=== PATIENT | female | born 1975 | race Caucasian/White ===

== ENCOUNTER 2018-03-10 04:36 | Observation (INO) | payer OTHER, SELFPAY ==
[2018-03-10 06:23] VITALS: BMI 21.2
[2018-03-10] MEDS ORDERED: Aspirin 325 MG TAB PO SCH (09:00)
[2018-03-10] MEDS ORDERED: ISOVUE-370 76%-LOCM 1 ML ONE (12:27)
[2018-03-10] MEDS ORDERED: Ondansetron HCl/PF 4 MG/2 ML Vial IVP PRN (13:07)
[2018-03-10] MEDS ORDERED: Acetaminophen 325 MG TAB PO PRN (13:07)
[2018-03-10] MEDS ORDERED: Acetaminophen 500 MG TAB PO PRN (13:40)
[2018-03-10] MEDS ORDERED: hydrOXYzine 25 MG TAB PO PRN (13:41)
[2018-03-10 13:47] LABS: #Eosinphils 0.2 thou/uL (0.0-0.7); #Lymphocytes 1.7 thou/uL (1.20-3.40); #Monocytes 0.4 thou/uL (0.11-0.59); #Neutrophils 4.5 thou/uL (1.40-6.50); %Basophils 0.7 % (0.0-1.0); %Eosinophils 2.5 % (0.0-10.0); %Lymphocytes 24.6 % (21.0-51.0); %Monocytes 5.6 % (0.0-10.0); %Neutrophils 66.6 % (42.0-75.0); Hemoglobin 12.2 g/dL (12.0-16.0); Mean Corpuscular HGB CONC 33.5 g/dL (32.0-36.0); Mean Corpuscular Hemoglobin 31.1 pg (27.0-31.0); Mean Corpuscular Volume 92.7 fl (81.0-99.0); Mean Platelet Volume 5.9 fL (7.4-10.4); Platelet Count 347 thou/uL (130-400); Red Blood Cell (RBC) Count 3.92 mill/uL (4.20-5.40); White Blood Cell (WBC) Count 6.8 thou/uL (4.8-10.8)
--- NOTE | 2018-03-10 14:04 | PDOC.EVN ---
Event Note - Event Note Event Note: [facility] DI[facility]ATED #[id number]
[2018-03-10 14:06] LABS: Anion Gap 12 mmol/L (10-20); BUN (Urea Nitrogen) 11 mg/dL (7.0-18.7); Calc. Creatinine Clearance 71 mL/min (70-130); Calcium 9.5 mg/dL (7.8-10.44); Carbon Dioxide 26 mmol/L (22-29); Chloride 99 mmol/L (98-107); Estimated GFR-MDRD 63; Glucose 165 mg/dL (70-105); Potassium 4.1 mmol/L (3.5-5.1); Sodium 133 mmol/L (136-145)
--- NOTE | 2018-03-10 15:51 | CT ---
CT OF CHEST PERFORMED WITH IV CONTRAST ENHANCEMENT: Date: 03/10/18 HISTORY: Weight loss. Smoking history. FINDINGS: The lungs are clear of any infiltrative process. No pulmonary nodules are seen. There is no significant mediastinal or hilar lymphadenopathy. No significant axillary adenopathy. The visualized liver parenchyma shows no focal findings. Right and left adrenal glands are normal in appearance. Visualized portion of the pancreas is unremarkable. No lytic or blastic bony changes. IMPRESSION: Unremarkable CT of the chest. POS: [facility]
[2018-03-10] MEDS: levETIRAcetam 500 MG TAB PO SCH (20:14)
[2018-03-10] MEDS: OXcarbazepine 300 MG TAB PO SCH (20:15)
[2018-03-10] MEDS ORDERED: OLANZapine 5 MG TAB PO SCH (21:00)
[2018-03-10] MEDS ORDERED: Atorvastatin Calcium 40 MG TAB PO SCH (21:00)
[2018-03-10] MEDS ORDERED: HYDROcodone/Acetaminophen 5/325 mg Tablet PO PRN (21:03)
--- NOTE | 2018-03-10 21:34 | HP ---
DATE OF ADMISSION: 03/10/2018 CHIEF COMPLAINT: Right leg numbness as well as confusion. HISTORY OF PRESENT ILLNESS: This is a 42-year-old female with known history of seizures as well as p er patient, history of CVA, admitted to the Internal Medicine team to complaints of right leg numbnes s as well as confusion and disorientation. Of note, has been taking Keppra, does not have insurance and thus has not been able to get good neurological evaluation outpatient. Patient at this point in time was noted to have left the hospital floor to have a smoke. The patient states that she has been smoking approximately 2-3 packs a day for the last 30 years, and is also of note noted a weight loss of about 70-80 pounds in the last year. The patient states that she used to a weigh a lot more but she continues to eat and is having weight loss. Patient otherwise denies other complaints or issues. States that the numbness is still present, but improved from yesterday. No alleviating or aggravat ing factors noted, state that this is the first time she has had this happen to her, has never had experienced these symptoms before. ALLERGIES: No known drug allergies. HOME MEDICATIONS: Include Acetaminophen, atorvastatin, Prozac, hydroxyzine, Keppra, lisinopril, dionna zepam and carbamazepine. SOCIAL HISTORY: Denies any drinking, but does smoke 2-3 packs a day for the past 30 years. FAMILY HISTORY: The patient states that she is unaware of any family history. REVIEW OF SYSTEMS: All systems reviewed. Pertinent positive in the HPI, otherwise negative. PHYSICAL EXAMINATION: VITAL SIGNS: Blood pressure is 108/60, temperature is 97.9, heart rate is 96, respiratory rate is 16 , pulse is 79. GENERAL: The patient lying in bed with no acute distress. Smell of smoke is present in the room. HEENT: Normocephalic, atraumatic. Extraocular muscles intact. Oral cavity moist and pink. Some de ntal caries noted. No lymphadenopathy noted. NECK: Nontender, mobile thyroid appreciated. PULMONARY: Reveals no respiratory distress. Clear to auscultation bilaterally. No rhonchi, wheezin g, or rales noted. CARDIOVASCULAR: Regular rate and rhythm. S1 and S2. No murmurs, rubs or gallops noted on all point s of auscultation. ABDOMEN: Positive bowel sounds, soft, nontender. No rebound or guarding noted. EXTREMITIES: 2+ peripheral pulses. No cyanosis, clubbing or edema in all 4 extremities. NEUROLOGIC: Cranial nerves II-XII intact. [employer] strength 5/5 bilaterally. Hip flexion 5/5 bilateral ly, knee flexion 5/5 bilaterally. Plantar and dorsiflexion 5/5 bilaterally. No loss of sensory jose miguel r function. SKIN: No rash. Normal turgor. LABORATORY DATA: CBC within normal limits. Basic metabolic panel is pending. ASSESSMENT AND PLAN: 1. Right lower extremity weakness. 2. Weight loss. 3. Smoking history. 4. Seizures. 5. History of hypertension. 6. Anxiety. 7. Smoking addiction. PLAN: We will obtain an MRI and a CT scan of her chest with contrast if the patient does not have an y malignancies and MRI is negative, we will discharge the patient. The patient advised to follow up with PCP and consider getting insurance plan of [employer] as she would be capable of qualifying for [employer] insurance and this way she will be able to have good followup with neurologist outpatient fo r her seizure history. Case and plan discussed with the patient at length. She understands and agre es with this plan. Otherwise, standard orders for GI, DVT prophylaxis and p.r.n. medications once ag ain. Case and plan discussed with the patient at length. No family at bedside. She understands and agrees with this plan.
[2018-03-11 04:31] LABS: #Basophils 0.1 thou/uL (0.0-0.2); #Eosinphils 0.3 thou/uL (0.0-0.7); #Lymphocytes 2.8 thou/uL (1.20-3.40); #Monocytes 0.4 thou/uL (0.11-0.59); #Neutrophils 3.4 thou/uL (1.40-6.50); %Basophils 1.1 % (0.0-1.0); %Eosinophils 4.4 % (0.0-10.0); %Lymphocytes 40.3 % (21.0-51.0); %Monocytes 5.5 % (0.0-10.0); %Neutrophils 48.7 % (42.0-75.0); Hemoglobin 12.1 g/dL (12.0-16.0); Mean Corpuscular HGB CONC 33.8 g/dL (32.0-36.0); Mean Corpuscular Hemoglobin 31.3 pg (27.0-31.0); Mean Corpuscular Volume 92.8 fl (81.0-99.0); Mean Platelet Volume 5.9 fL (7.4-10.4); Platelet Count 327 thou/uL (130-400); RBC Distribution Width 13.8 % (11.5-14.5); Red Blood Cell (RBC) Count 3.86 mill/uL (4.20-5.40)
[2018-03-11 04:41] LABS: Anion Gap 11 mmol/L (10-20); BUN (Urea Nitrogen) 10 mg/dL (7.0-18.7); Calc. Creatinine Clearance 80 mL/min (70-130); Calcium 8.9 mg/dL (7.8-10.44); Carbon Dioxide 27 mmol/L (22-29); Chloride 101 mmol/L (98-107); Estimated GFR-MDRD 72; Glucose 82 mg/dL (70-105); Potassium 3.7 mmol/L (3.5-5.1); Sodium 135 mmol/L (136-145)
[2018-03-11] MEDS: OXcarbazepine 300 MG TAB PO SCH (08:17)
[2018-03-11] MEDS: levETIRAcetam 500 MG TAB PO SCH (08:17)
--- NOTE | 2018-03-11 08:17 | PDOC.EVN ---
Event Note - Event Note Event Note: DC SUMMARY #[id number]
[2018-03-11] MEDS ORDERED: FLUoxetine HCl 20 MG CAP PO SCH (09:00)
[2018-03-11] MEDS ORDERED: Enoxaparin Sodium 40 MG/0.4 ML SYRINGE SC SCH (09:00)
[2018-03-11] MEDS ORDERED: Lisinopril 20 MG TAB PO SCH (09:00)
[2018-03-11] MEDS ORDERED: Polyethylene Glycol 3350 17 GM Packet PO SCH (09:00)
--- NOTE | 2018-03-11 11:30 | MRI ---
MRI BRAIN NONCONTRAST: Date: 03/11/18 HISTORY: 42-year-old female with seizure and left body hypesthesia (numbness). FINDINGS: The ventricles are normal in size and configuration. There is no restricted diffusion, midline shift or any other mass effect, recent intraaxial hemorrhage, or extraaxial fluid collection. There are a few scattered punctate T2-hyperintensities in the cerebral white matter consistent with mild chronic ischemic white matter changes due to mild microvascular atherosclerosis. Bilateral mesial temporal s tructures appear symmetrically normal. IMPRESSION: 1. Mild chronic ischemic white matter changes. 2. Otherwise negative. jnr POS: [facility]
[2018-03-11 11:54] VITALS: BP 99/59; TEMP 98.5
--- NOTE | 2018-03-11 13:34 | DIS ---
DATE OF ADMISSION: 03/10/2018 DATE OF DISCHARGE: 03/11/2018 ADMISSION DIAGNOSES: Right lower extremity weakness, weight loss, smoking, history of seizures, hist ory of hypertension, anxiety, smoking addiction. DISCHARGE DIAGNOSES: Transient ischemic attack and cerebrovascular accident ruled out, weight loss l ikely secondary to reduced caloric intake, history of smoking, seizures is stable, hypertension, and anxiety. HOSPITAL COURSE: This is a 42-year-old female, who was admitted to the Internal Medicine team on the observation floor due to CVA like concerns for right lower extremity numbness. The patient also sta jenny that she has some confusion and disorientation. The patient does have a history of seizures; how ever, states that she has been compliant with her medications. The patient also noted that over the last few months, she has had 70-80 pounds weight loss and also admits to smoking about 3 packs a day for the past 30 years. The patient was admitted to Internal Medicine team, had a CT chest with contr ast done to look for any possible malignant source and was negative for any malignancies. The patien t also had an MRI done. Prior to discharge, the patient did not have any seizure activity. Telemetr y leads over 24 hours did not show any dysrhythmias. The patient had 2 sets of laboratory workup don e, CBC and basic metabolic panel and both sides were within acceptable limits. The patient at point in time of discharge was stable. Denied any nausea, vomiting, diarrhea, constipation, chest pain, fe vers, or shortness of breath, and was stable and ready to go home. DISPOSITION: Home. FOLLOWUP: Follow up with PCP within 1 week. MEDICATIONS: Resume home medications. ACTIVITY: As tolerated. DIET: Low fat, low calorie, high fiber diet. CONDITION: Stable. PROGNOSIS: Good. Case and plan discussed with the patient at length, smoking cessation advised. She understands and a grees with this plan.
== END 2018-03-11 12:55 | disposition home or self-care (01) ==
LOC: ERS 04:36 → 2SW 06:05
PROVIDERS: ADMIT Family Medicine; ATTEND Family Medicine
DX: R53.1 Weakness (principal); R41.0 Disorientation, unspecified; F17.210 Nicotine dependence, cigarettes, uncomplicated; I10 Essential (primary) hypertension; F41.9 Anxiety disorder, unspecified; R56.9 Unspecified convulsions; R63.4 Abnormal weight loss; Z68.20 Body mass index [BMI] 20.0-20.9, adult; Z79.899 Other long term (current) drug therapy
CPT/HCPCS: 36415; 70551; 71260; 80048; 84443; 85025; 96372; 99406; A4216; G0378; J1650